=== PATIENT | male | born 2000 | race African-American/Black ===

== ENCOUNTER 2022-12-19 18:36 | Emergency (ER) | payer OTHER ==
[~2022-12-19] VITALS: Ht 170.2 cm; Wt 77.1 kg
[2022-12-19 18:48] VITALS: O2SAT 99
[2022-12-19] MEDS ORDERED: AMOXICILLIN/CLAVULANATE K 875 MG TAB PO STA (19:02)
[2022-12-19] MEDS ORDERED: AMOXICILLIN/CLAVULANATE K 875 MG TAB ONE (19:07)
[2022-12-19] MEDS ORDERED: AMOXICILLIN500 MG PO (19:08)
== END 2022-12-19 19:15 | disposition home or self-care (01) ==
LOC: FSED 18:39
DX: R05.9 Cough, unspecified (principal); J02.0 Streptococcal pharyngitis; J45.909 Unspecified asthma, uncomplicated
CPT/HCPCS: 99283